=== PATIENT | female | born 1990 | race African-American/Black ===

== ENCOUNTER 2016-06-14 23:36 | Inpatient (IN) | payer MEDICAID ==
[~2016-06-14] VITALS: Ht 160 cm; Wt 116.1 kg
[2016-06-14] MEDS: LACTATED RINGER'S 1000 ML INJ 1,000 ML IV SCH (01:00)
[~2016-06-14 23:36] MED LIST: TOPI25 PO
[2016-06-15] VITALS (24 sets, daily range): BP systolic 102–137; BP diastolic 52–87; PULSE 80–116; RESP 18; TEMP 96.8–99.1; O2SAT 98–99
[2016-06-15] MEDS ORDERED: LACTATED RINGER'S 1000 ML INJ 1,000 ML IV PRN (00:50)
[2016-06-15] MEDS ORDERED: SODIUM CHLORID 0.9% 500 ML INJ 500 ML IV PRN (01:00)
[2016-06-15] MEDS ORDERED: PENICILLIN G POTASSIUM INJ 5,000,000 UNITS in SODIUM CHLORIDE 0.9% INJ 100 ML IV ONE (01:00)
[2016-06-15] MEDS ORDERED: LIDOCAINE HCL 1% 50 ML VIAL INFIL PRN (01:00)
[2016-06-15] MEDS ORDERED: MINERAL OIL 10 ML VIAL TOPICAL PRN (01:00)
[2016-06-15] MEDS ORDERED: LIDOCAINE HCL 1% 50 ML VIAL I-DERMAL PRN (01:00)
[2016-06-15] MEDS ORDERED: CITRIC ACID-SODIUM CITRATE LIQ 30 ML UDC PO SCH (01:00)
[2016-06-15] MEDS ORDERED: OXYTOCIN 30 UNITS-500ML PREMIX 500 ML IV ONE ×2 (01:00→18:00)
[2016-06-15] MEDS ORDERED: SODIUM CHLOR 0.9% 1000 ML INJ 1,000 ML IV PRN (01:10)
[2016-06-15 01:12] LABS: AUTOMATED NEUTROPHIL # 7.6 TH/MM3 (1.8-7.7); BASOPHIL % 0.4 % (0.0-2.0); EOSINOPHIL % 0.1 % (0.0-4.0); HEMATOCRIT 30.8 % (35.0-46.0); LYMPH % 22.6 % (9.0-44.0); LYMPHOCYTE # 2.4 TH/MM3 (1.0-4.8); MEAN CELL VOLUME 72.7 FL (80.0-100.0); MONO % 6.4 % (0.0-8.0); NEUT % 70.5 % (16.0-70.0); PLATELET COUNT 408 TH/MM3 (150-450); RED BLOOD COUNT 4.23 MIL/MM3 (4.00-5.30); RED CELL DISTRIBUTION WIDTH 16.9 % (11.6-17.2); WHITE BLOOD COUNT 10.8 TH/MM3 (4.0-11.0)
[2016-06-15 01:13] LABS: HEMO FLAGS AUTO DIFF
--- NOTE | 2016-06-15 01:21 | HHI.HP ---
HPI Chief Complaint Contraction pain and her water broke here in OB ED Date Seen: Jun 15, 2016 Travel History International Travel<30 Days: No Contact w/Intl Traveler<30Days: No Known Affected Area: No History of Present Illness HPI This patient is a 25-year-old black female PCS at 38 weeks gestation presents complaining of contractions. [facility] , and while here in OB ED the patient's membranes ruptured spontaneously. Clear fluid noted. Patient has previous . Desires a delivery if possible. Her operative note is available and she had transverse incision on the uterus. Patient denies bleeding at this time however she is real every 2-3 minutes painfully Para: 1 : 2 History Past Medical History Narrative Medical Obesity Obstetric History Obstetric History 1 done emergently for high blood pressure Past Surgical History Narrative Surgical 1 with a transverse incision documented Family History Family History: Negative Social History Alcohol Use: No Tobacco Use: No Substance Abuse: No Allergies-Medications (Allergen,Severity, Reaction): Coded Allergies: No Known Allergies (Unverified , 11/06/15) Home Meds Discontinued Scripts Topiramate (Topamax)25 Mg Tab25 Mg PO DAILY 14 Days Prov:Markie Cerrato MD 06/01/14 Review of Systems General / Constitutional: No: Fever, Weight Gain, Chills, Other Eyes: No: Diploplia, Blurred Vision, Visual changes, Pain, Photophobia HENT: No: Headaches, Vertigo, Lightheadedness Cardiovascular: No: Irregular Rhythm, Chest Pain or Discomfort, Palpitations, Tachycardia, Syncope, Varicosities, Edema, Cyanosis Respiratory: No: Cough, Short of Breath, Other Gastrointestinal: No: Nausea, Vomiting, Diarrhea Genitourinary: No: Decreased Urinary Output, Oliguria Musculoskeletal: No: Limited ROM, Weakness, Cramping, Edema, Pain Skin: No Rash, No Itching, No Dryness, No Lumps, No Change in Pigmentation, No Change in Nails, No Alopecia, No Lesions Neurologic: No: Weakness, Dizziness, Syncope, Focal Abnormalities, Coordination Problem, Headache, Slurred Speech, Seizures Psychiatric: No: Depression, Suicidal Ideations, Homicidal Ideation Endocrine: No: Heat Intolerance, Cold Intolerance, Polydipsia, Polyuria, Other Physical Exam Narrative GENERAL: Well-nourished, well-developed obese patient. SKIN: Warm and dry. HEAD: Normocephalic and atraumatic. EYES: No scleral icterus. No injection or drainage. ENT: No nasal drainage noted. Mucous membranes pink. Airway patent. NECK: Supple, trachea midline. No JVD. CARDIOVASCULAR: Regular rate and rhythm without murmurs, gallops, or rubs. RESPIRATORY: Breath sounds equal bilaterally. No accessory muscle use. BREASTS: Bilateral exam showed no masses , no retractions, no nipple discharge. ABDOMEN/GI: Abdomen soft, non-tender, bowel sounds present, no rebound, no guarding Gravid to [40-] weeks size Fundal Height: [-40] GENITOURINARY: External Genitalia: intact and normal in appearance BUS glands: [-] Cervix: [-] Dilatation: [1-] Effacement: [60-] Station: [-3] Presentation: [-vtx] Membranes: [ ruptured] Uterine Contractions: [reg-] FHT's: Category: [1-] Baseline: [133-] Reactive: [yes-] Variability: [mod-] Decels: [none-] EXTREMITIES: No cyanosis or edema. BACK: Nontender without obvious deformity. No CVA tenderness. NEUROLOGICAL: Awake and alert. Motor and sensory grossly within normal limits. Five out of 5 muscle strength in all muscle groups. Normal speech. Data Data Orders Ob (2e) Additional Admit Info (06/15/16 00:26) Admit To Inpatient (06/15/16 ) Vital Signs (Adult) .Per protocol (06/15/16 00:50) ^ Heart (06/15/16 00:50) ^ Amnioinfusion (06/15/16 00:50) Urinary Catheter Management .ONCE (06/15/16 00:50) Diet Liquid (06/15/16 Breakfast) Lactated Ringer's 1000 Ml Inj (Lr 1000 M (06/15/16 00:50) Lactated Ringer's 1000 Ml Inj (Lr 1000 M (06/15/16 00:50) Sodium Chlorid 0.9% 500 Ml Inj (Ns 500 M (06/15/16 01:00) Sodium Chlor 0.9% 1000 Ml Inj (Ns 1000 M (06/15/16 01:10) Lidocaine 1% Inj (50 Ml) (Xylocaine 1% I (06/15/16 01:00) Citric Acid-Sodium Citrate Liq (Bicitra (06/15/16 01:00) Fentanyl Inj (Fentanyl Inj) (06/15/16 01:00) Fentanyl Inj (Fentanyl Inj) (06/15/16 01:00) Penicillin G Potassium Inj (Pfizerpen-G (06/15/16 01:00) Complete Blood Count With Diff (06/15/16 00:50) Urinalysis - C+S If Indicated (06/15/16 00:50) Resp Oxygen Non Rebreathe Mask (06/15/16 ) ^ Epidural / Intrathecal Infus (06/15/16 00:50) Oxytocin 30 Units-500ml Premix (Pitocin (06/15/16 01:00) Lidocaine 1% Inj (50 Ml) (Xylocaine 1% I (06/15/16 01:00) Light Mineral Oil (Muri-Lube Oil) (06/15/16 01:00) Inpatient Certification (06/15/16 ) Specimen To Be Collected PRN (06/15/16 00:50) Type And Screen (06/15/16 00:53) Labs GBS positive Assessment/Plan Assessment and Plan This patient is a 25-year-old black female previous low transverse and now 38 weeks with contractions and spontaneous rupture membranes. baby is reactive heart rate tracing She desires a if possible as discussed with the patient like she understands that the is a safe procedure but has a uterine rupture rate of just under 1%. She understands that and accepts that risk consent form signed for . Patient' s cervix is 1 cm and 60% effaced with clear amniotic fluid noted. Patient is GBS is positive records from her previous are available., She is real and entering the latent phase labor. Confirm the baby's presentation with ultrasound prior to continuing, patient was counseled and wishes to proceed with trial labor Mina Mcfadden II, MD Jun 15, 2016 01:21
[2016-06-15 01:22] LABS: BACTERIA, URINE MOD /hpf; BLOOD, URINE MOD (NEG); COMMENT (UR) CULTURE INDICATED; CULTURE IF INDICATED CULTURE INDICATED; GLUCOSE,URINE NEG (NEG); KETONE, URINE 10 mg/dL (NEG); NITRITE,URINE NEG (NEG); PH, URINE 6.5 (5.0-8.5); SQUAMOUS EPITHELIAL CELL URINE 25 /hpf (0-5); URINE COLOR YELLOW (YELLW/STRAW)
[2016-06-15 01:38] LABS: EOSINOPHILS 1 % (0-4); MYELOCYTES 1 % (0-0); NEUTROPHIL # MANUAL DIFF 8.5 TH/MM3 (1.8-7.7); POLYS (SEG NEUTROPHILS) 78 % (16-70); WBC DIFF SAMPLE 100
[2016-06-15 01:39] LABS: PLATELET ESTIMATE SMEAR NORMAL (NORMAL); PLATELET MORPHOLOGY NORMAL (NORMAL); SCAN/DIFF FINAL DIFF MANUAL
[2016-06-15 01:40] LABS: TOXIC VACUOLATION PRESENT (NONE SEEN)
--- NOTE | 2016-06-15 01:49 | HHI.HP ---
History & Physical H&P HPI Chief Complaint Contractions Date Seen: Jun 15, 2016 Time Seen: 00:15 Travel History International Travel<30 Days: No Contact w/Intl Traveler<30Days: No Known Affected Area: No History of Present Illness HPI Ms. Puente is a 25 yo at 38 5/7 weeks (ROSALIE 06/24/2016) who presents with complaint of contractions. Patient reports the contractions have increased in severity over the past 12 days. Patient was contractions are approximately 2 5 minutes apart. Patient denies any loss of vaginal fluid. Patient reports feeling less movement since onset of contractions. Patient is GBS positive. Patient denies complications this . Patient reports prior preeclampsia with first gestation 8 years prior requiring emergency ; patient is had normal blood pressure this gestation. No reported shortness of breath, chest pain, nausea/vomiting, dysuria, or bowel abnormalities. Patient requests vaginal after ; patient was counseled regarding potential risk of uterine rupture, but still requests this be done. Para: 1 : 2 Remarks Patient reported loss of vaginal fluid shortly after interview History (Limited) History Past Medical History Narrative Medical Prior preeclampsia Medical History: Denies Significant Hx Obstetric History Obstetric History 001 Prior preeclampsia; first delivery at 38 weeks [place] Past Surgical History Narrative Surgical CS for first gestation in 2008; transverse low uterine incision documented on records obtained from prior hospitalization Family History Family History: Negative Social History Narrative Social History Patient quit smoking during Alcohol Use: No Tobacco Use: No Substance Abuse: No Allergies-Medications Allergies-Medications (Allergen,Severity, Reaction): Coded Allergies: No Known Allergies (Unverified , 11/06/15) Home Meds Discontinued Scripts Topiramate (Topamax)25 Mg Tab25 Mg PO DAILY 14 Days Prov:Markie Cerrato MD 06/01/14 ROS Review of Systems General / Constitutional: No: Fever, Chills Eyes: No: Diploplia, Blurred Vision HENT: No: Headaches Cardiovascular: No: Chest Pain or Discomfort Respiratory: No: Short of Breath Gastrointestinal: No: Nausea, Vomiting Musculoskeletal: Pain Physical Exam Physical Exam Narrative GENERAL: Well-nourished, well-developed patient. SKIN: Warm and dry. HEAD: Normocephalic and atraumatic. EYES: No scleral icterus. No injection or drainage. ENT: No nasal drainage noted. Mucous membranes pink. Airway patent. NECK: Supple, trachea midline. No JVD. CARDIOVASCULAR: Regular rate and rhythm without murmurs RESPIRATORY: Breath sounds equal bilaterally. No accessory muscle use. ABDOMEN/GI: Abdomen soft, non-tender, bowel sounds present, no rebound, no guarding Gravid EXTREMITIES: No cyanosis or edema. BACK: Nontender without obvious deformity. No CVA tenderness. NEUROLOGICAL: Awake and alert. Motor and sensory function grossly within normal limits. GENITOURINARY: External Genitalia: intact and normal in appearance Abundant clear vaginal fluid present suggestive of ruptured membranes Cervix: Dilatation:1 Effacement: 20% Station: -3 Membranes: Rupture Uterine Contractions: q34 minutes FHT's: Category: 1 Baseline: 145 Reactive: Y Variability: Moderate Decels: Variable Data Data Data Vital Signs Reviewed: Yes Orders Ob (2e) Additional Admit Info (06/15/16 00:26) Admit To Inpatient (06/15/16 ) Vital Signs (Adult) .Per protocol (06/15/16 00:50) ^ Heart (06/15/16 00:50) ^ Amnioinfusion (06/15/16 00:50) Urinary Catheter Management .ONCE (06/15/16 00:50) Diet Liquid (06/15/16 Breakfast) Lactated Ringer's 1000 Ml Inj (Lr 1000 M (06/15/16 00:50) Lactated Ringer's 1000 Ml Inj (Lr 1000 M (06/15/16 00:50) Sodium Chlorid 0.9% 500 Ml Inj (Ns 500 M (06/15/16 01:00) Sodium Chlor 0.9% 1000 Ml Inj (Ns 1000 M (06/15/16 01:10) Lidocaine 1% Inj (50 Ml) (Xylocaine 1% I (06/15/16 01:00) Citric Acid-Sodium Citrate Liq (Bicitra (06/15/16 01:00) Fentanyl Inj (Fentanyl Inj) (06/15/16 01:00) Fentanyl Inj (Fentanyl Inj) (06/15/16 01:00) Penicillin G Potassium Inj (Pfizerpen-G (06/15/16 01:00) Complete Blood Count With Diff (06/15/16 00:50) Urinalysis - C+S If Indicated (06/15/16 00:50) Resp Oxygen Non Rebreathe Mask (06/15/16 ) ^ Epidural / Intrathecal Infus (06/15/16 00:50) Oxytocin 30 Units-500ml Premix (Pitocin (06/15/16 01:00) Lidocaine 1% Inj (50 Ml) (Xylocaine 1% I (06/15/16 01:00) Light Mineral Oil (Muri-Lube Oil) (06/15/16 01:00) Inpatient Certification (06/15/16 ) Specimen To Be Collected PRN (06/15/16 00:50) Type And Screen (06/15/16 00:53) Urine Culture (06/15/16 00:30) Labs Laboratory Tests Test 06/15/16 06/15/16 00:30 00:55 Urine Color YELLOW Urine Turbidity CLOUDY Urine pH 6.5 Urine Specific [place] 1.018 Urine Protein 100 Urine Glucose (UA) NEG Urine Ketones 10 Urine Occult Blood MOD Urine Nitrite NEG Urine Bilirubin NEG Urine Urobilinogen LESS THAN 2.0 Urine Leukocyte Esterase LARGE Urine RBC 72 Urine WBC Urine WBC Clumps MANY Urine Squamous Epithelial 25 Cells Urine Bacteria MOD Urine Yeast with Hyphae RARE Urine Yeast (Budding) Microscopic Urinalysis Comment CULTURE INDICATED White Blood Count 10.8 Red Blood Count 4.23 Hemoglobin 10.2 Hematocrit 30.8 Mean Corpuscular Volume 72.7 Mean Corpuscular Hemoglobin 24.0 Mean Corpuscular Hemoglobin 33.0 Concent Red Cell Distribution Width 16.9 Platelet Count 408 Mean Platelet Volume 7.6 Neutrophils (%) (Auto) 70.5 Lymphocytes (%) (Auto) 22.6 Monocytes (%) (Auto) 6.4 Eosinophils (%) (Auto) 0.1 Basophils (%) (Auto) 0.4 Neutrophils # (Auto) 7.6 Lymphocytes # (Auto) 2.4 Monocytes # (Auto) 0.7 Eosinophils # (Auto) 0.0 Basophils # (Auto) 0.0 CBC Comment AUTO DIFF Date/Time Procedure Status Source Growth 06/15/16 00:30 Urine Culture Received Urine Clean Catch Pending MDM MDM Medical Record Reviewed: Yes Narrative Course / MDM Ms. Puente is a 25 yo at 38 5/7 weeks (ROSALIE 06/24/2016) Assessment: -Contractions on EFM q3-4min -Rupture of membranes documented during triage -Category 1 rhythm -Prior CS; patient requests -GBS positive -Cervix 1/60%/-3 Plan: -Will admit for trial of labor as -Will continue EFM -Type and screen, blood typing, UA ordered -Will start IV fluids -Epidural if requested for pain control Paulie Anthony MD R2 Jun 15, 2016 01:49
[2016-06-15] MEDS: PENICILLIN G POTASSIUM INJ 2,500,000 UNITS in SODIUM CHLORIDE 0.9% INJ 100 ML IV SCH ×4 (07:10→18:00)
--- NOTE | 2016-06-15 07:12 | PD.LABORPN ---
Subjective Subjective 25 yo at 38 5/7 weeks (ROSALIE 06/24/2016) who presented with contractions. She is GBS positive. No complications this . She had preeclampsia with prior 8 years ago and required emergency . She's had normal blood pressures this . She is hoping for a vaginal delivery after . Currently doing well, resting in bed. She feels contractions every 3 to 5 mins, but they are weaker than last night. She quit smoking during . She had SROM during triage, is GBS positive, and is receiving penicillin for prophylaxis (1 AM and 7 AM). IUPC placed, considering pitocin for augmentation. Objective Objective Pelvic Exam: Dilatation: 1 Effacement: 50% Station: -3 Presentation: vertex Membranes: SROM Uterine Contractions: q5-6 mins FHT's: Category: 1 Baseline: 140's Reactive: yes Variability: moderate Decels: none Assessment/Plan Assessment and Plan 25 yo at 38 5/7 weeks (ROSALIE 06/24/2016) attempting . -Monitor contractions with IUPC -Consider Pitocin for augmentation - GBS positive, SROM at triage, getting penicillin for prophylaxis - Monitor heart strip - Pain well controlled currently Ian Andre MD R2 Jun 15, 2016 07:12 -Will start IV fluids -Epidural if requested for pain control Ian Andre MD R2 Jun 15, 2016 07:12 Ian Andre MD R2 Jun 15, 2016 07:12
[2016-06-15] MEDS ORDERED: OXYTOCIN 30 UNITS-500ML PREMIX 500 ML IV SCH (10:00)
--- NOTE | 2016-06-15 10:19 | PD.LABORPN ---
Subjective Subjective Coming on service taking over for Dr. Mcfadden. Patient is 25-year-old female who is at 3839 weeks gestation previous section and desires vaginal after section. Patient was admitted with spontaneous rupture of membranes and augmentation with Pitocin was begun at 9:30 this morning. Patient does have an intrauterine pressure catheter placed and she does not desire any additional pain management. Patient's positive GBS which is being treated at this time and she has a history of MRSA with contact precautions with this . Last cervical exam was 1 cm at 7:30 this morning. Previous was done due to cephalopelvic disproportion and nonreassuring heart rate tracing. Patient has not had a third trimester ultrasound with estimated weight. heart rate tracing is a category 1. With the baseline of 140 moderate variability no decelerations are noted. Contractions presently have a [place] units of 120. Objective Vital Signs Vital Signs Date Time Temp Pulse Resp B/P Pulse Ox O2 Delivery O2 Flow Rate FiO2 06/15/16 08:55 91 118/52 06/15/16 08:54 99.1 18 06/15/16 07:13 95 113/77 Objective Pelvic Exam: Cervix: [-] Dilatation: [-] Effacement: [-] Station: [-] Presentation: [-] Membranes: [intact or ruptured] Uterine Contractions: [-] FHT's: Category: [-] Baseline: [-] Reactive: [-] Variability: [-] Decels: [-] Marybeth Amin MD Jun 15, 2016 10:19
--- NOTE | 2016-06-15 14:54 | PD.LABORPN ---
Subjective Subjective 25 yo at 38 5/7 weeks (ROSALIE 06/24/2016) who presented with contractions. She is GBS positive, on penicillin. She is undergoing trial of labor after C- section. Pitocin is currently at 6 units per minute, patient real every 2 -3 minutes over last 20 minutes. Prior to recent increase of Pitocin, patient was real every 4-5 minutes. One variable decelerations noted since increase of Pitocin. Patient states she feels contractions but they are "tolerable". She is currently on right lateral decubitus position. SROM at approximately midnight. No other symptoms. Cervical exam from 20 min ago unchanged from last exam, 2-3/80%/-3. (Sena Davis MD R1) Objective Vital Signs Vital Signs Date Time Temp Pulse Resp B/P Pulse Ox O2 Delivery O2 Flow Rate FiO2 06/15/16 14:20 80 18 112/62 06/15/16 13:36 18 06/15/16 13:35 99 102/53 06/15/16 13:35 97.9 06/15/16 12:29 92 18 105/59 06/15/16 11:41 96 102/67 06/15/16 11:41 98.4 06/15/16 11:39 18 06/15/16 10:53 116 112/87 06/15/16 10:52 18 06/15/16 08:55 91 118/52 06/15/16 08:54 99.1 18 06/15/16 07:13 95 113/77 Objective Pelvic Exam: Cervix: Soft Dilatation: 2-3 Effacement: 70 Station: -3 Presentation: vertex Membranes: SROM at 0020 Uterine Contractions: Every 2-3 minutes FHT's: Category: 1 Baseline: 140 Reactive: y Variability: mod Decels: one variable (Sena Davis MD R1) Assessment/Plan Problem List: (1) Encounter for trial of labor Assessment and Plan Possible Pitocin for 30 minutes Restart Pitocin at half previous rate .(3mU/min) Continue repositioning as needed No cervical change since 11 AM, currently 2370/-3 If patient does not progress at next cervical exam, will proceed with section SDW Dr. Andre, DW Dr. Amin (Sena Davis MD R1) Collaborating MD Comments Agree with present management (Marybeth Amin MD) Sena Davis MD R1 Jun 15, 2016 14:54 Marybeth Amin MD Jun 15, 2016 16:04
[2016-06-15] MEDS: LACTATED RINGER'S 1000 ML INJ 1,000 ML IV SCH (15:31)
--- NOTE | 2016-06-15 16:25 | PD.LABORPN ---
Subjective Subjective Patient at term with previous for . SROM this am with pitocin augmentation due to hypotonic labor pattern. Unable to increase pitocin due to intolerance of labor. Baseline 140, category 1 tracing with moderate variability. Variable decelerations to 90 on 50% of contractions while on pitocin. IUPC/FSE are in with 180 mvu without pitocin Objective Vital Signs Vital Signs Date Time Temp Pulse Resp B/P Pulse Ox O2 Delivery O2 Flow Rate FiO2 06/15/16 15:18 98.3 06/15/16 15:18 18 06/15/16 15:15 98 109/60 06/15/16 14:20 80 18 112/62 06/15/16 14:15 18 06/15/16 13:36 18 06/15/16 13:35 99 102/53 06/15/16 13:35 97.9 06/15/16 12:29 92 18 105/59 06/15/16 11:41 96 102/67 06/15/16 11:41 98.4 06/15/16 11:39 18 06/15/16 10:53 116 112/87 06/15/16 10:52 18 06/15/16 08:55 91 118/52 06/15/16 08:54 99.1 18 Cx 2-3/50/-3 Objective Pelvic Exam: Cervix: [-mid] Dilatation: [2-3-] Effacement: [-50] Station: [-3-] Presentation: [-] Membranes: [intact or ruptured] Uterine Contractions: [-] FHT's: Category: [-1] Baseline: [140-] Reactive: [moderate-] Variability: [moderate-] Decels: [absent-] Assessment/Plan Problem List: (1) Encounter for trial of labor Assessment and Plan Plan repeat Inadequate progress with intolerance to labor Marybeth Amin MD Jun 15, 2016 16:25
[2016-06-15] MEDS ORDERED: ceFAZolin INJ 1,000 MG VIAL ONE ×2 (16:29)
[2016-06-15] MEDS ORDERED: ceFAZolin 2 GM PREMIX 50 ML IV SCH (16:30)
[2016-06-15] MEDS ORDERED: OXYTOCIN 10 UNIT/ML AMP ONE (16:31)
[2016-06-15] MEDS ORDERED: ACETAMINOPHEN 1000 MG/100 ML VIAL IV ONE (16:32)
[2016-06-15] MEDS ORDERED: fentaNYL CITRATE 250 MCG/5 ML AMP ONE (17:48)
[2016-06-15] MEDS ORDERED: MORPHINE SULFATE PF 5 MG/10 ML VIAL ONE (17:48)
--- NOTE | 2016-06-15 17:57 | PD.OB.DELI ---
Procedure Note Section Procedure Pre Op Diagnosis #1. 38-39 weeks gestation #2. intolerance to labor #3. Failure to progress Post Op Diagnosis: Post Op Diagnosis Same Performed by Marybeth Amni Procedure: Repeat Low Transverse Sec Indication for delivery: Nonreassuring heart tracing Informed consent obtained: For anesthesia, For procedure Confirmed correct: Patient, Procedure, Time-out taken Anesthesia: Spinal Medication prior to procedure: As documented in eMAR Monitoring during procedure: Blood pressure monitoring, Pulse oximetry Urinary catheter: Inserted using sterile technique Sterile preparation: Duraprep Position: Supine with wedge to left side Operative Features Skin Incision: Pfannenstiel Uterine Incision: Low transverse w/knife / blunt ext Membranes Ruptured: Previously Presentation: Occiput posterior Time of : 17:15 Delivery of infant: Umbilical cord, Other (nuchal cord 1) Infant: Female One Minute : 9 Five Minute : 9 Weight: 3050 g Placenta delivered: Intact Estimated blood loss: 500 cc Procedure tolerated: Well Maternal Condition: Stable Condition: Stable Marybeth Amin MD Jun 15, 2016 17:57
[2016-06-15] MEDS ORDERED: SIMETHICONE 80 MG CHEWABLE TAB PO PRN (18:00)
[2016-06-15] MEDS ORDERED: ONDANSETRON HCL 4 MG/2 ML VIAL IV PUSH PRN (18:00)
[2016-06-15] MEDS ORDERED: SODIUM CHLORIDE 0.9% FLUSH 5 ML FLUSH IV PRN (18:00)
[2016-06-15] MEDS ORDERED: EPIDURAL-NO SYSTEMIC NARCOTICS XX PRN ×2 (20:15)
[2016-06-15] MEDS ORDERED: EPIDURAL-DIPHENHYDRAMINE HCL 50 MG/ML VIAL IV PUSH PRN ×2 (20:15)
[2016-06-15] MEDS ORDERED: EPIDURAL-DIPHENHYDRAMINE HCL 50 MG CAP PO PRN ×2 (20:15)
[2016-06-15] MEDS ORDERED: EPIDURAL-NALOXONE HCL 0.4 MG/ML AMP IV PRN ×2 (20:15)
[2016-06-15] MEDS ORDERED: EPIDURAL-DO NOT ADMINISTER ANTICOAGULANTS XX PRN ×2 (20:15)
[2016-06-15] MEDS ORDERED: SODIUM CHLORIDE 0.9% FLUSH 5 ML FLUSH IV SCH (21:00)
[2016-06-15] MEDS ORDERED: HYDROmorphone HCL PF 1 MG/ML VIAL IV PRN (22:15)
[2016-06-15] MEDS ORDERED: LACTATED RINGER'S 1000 ML INJ 1,000 ML IV SCH (22:51)
[2016-06-16] MEDS: LACTATED RINGER'S 1000 ML INJ 1,000 ML IV SCH (01:46)
[2016-06-16] MEDS ORDERED: OXYTOCIN 30 UNITS-500ML PREMIX 500 ML IV PRN (04:00)
[2016-06-16 05:00] VITALS: BP 95/57; PULSE 97; RESP 18; TEMP 98.9
[2016-06-16] MEDS: oxyCODONE/ACETAMINOPHEN 5 MG/325 MG TAB PO PRN ×4 (05:58→22:52)
[2016-06-16 06:12] LABS: BASOPHIL % 0.2 % (0.0-2.0); HEMATOCRIT 29.8 % (35.0-46.0); LYMPH % 12.1 % (9.0-44.0); LYMPHOCYTE # 1.5 TH/MM3 (1.0-4.8); MEAN CELL VOLUME 73.9 FL (80.0-100.0); MEAN CORPUSCULAR HGB CONC 31.1 % (32.0-36.0); MONO % 5.3 % (0.0-8.0); NEUT % 82.4 % (16.0-70.0); PLATELET COUNT 337 TH/MM3 (150-450); RED BLOOD COUNT 4.03 MIL/MM3 (4.00-5.30); WHITE BLOOD COUNT 12.2 TH/MM3 (4.0-11.0)
[2016-06-16 06:16] LABS: HEMO FLAGS AUTO DIFF
[2016-06-16] MEDS: IBUPROFEN 600 MG TAB PO PRN ×2 (07:26→14:07)
--- NOTE | 2016-06-16 07:37 | HHI.OB ---
Subjective Remarks 25 year old POD 1 after for failure to progress after trial of labor. This morning she is doing well. She has a good appetite. Pain is well controlled. Lochia is amount of menstrual period. She has no bowel movement or flatus at this time. She plans to use condoms for control. Counseled on importance of consistent use. She is starting to ambulate. (Ian Andre MD R2) Objective Vitals/I&O Vital Signs Date Time Temp Pulse Resp B/P Pulse Ox O2 Delivery O2 Flow Rate FiO2 06/16/16 05:00 97 95/57 06/16/16 05:00 98.9 18 06/15/16 23:27 98.7 91 18 110/73 06/15/16 20:21 90 18 113/68 06/15/16 20:20 96.8 06/15/16 19:13 98 06/15/16 19:13 18 06/15/16 19:12 81 129/70 06/15/16 19:04 97.9 06/15/16 18:49 88 18 127/78 98 06/15/16 18:35 91 128/70 06/15/16 18:35 18 99 06/15/16 18:19 95 18 124/70 99 06/15/16 18:05 99 18 137/80 99 06/15/16 17:52 98.2 102 18 116/76 99 06/15/16 15:18 98.3 06/15/16 15:18 18 06/15/16 15:15 98 109/60 06/15/16 14:20 80 18 112/62 06/15/16 14:15 18 06/15/16 13:36 18 06/15/16 13:35 99 102/53 06/15/16 13:35 97.9 06/15/16 12:29 92 18 105/59 06/15/16 11:41 96 102/67 06/15/16 11:41 98.4 06/15/16 11:39 18 06/15/16 10:53 116 112/87 06/15/16 10:52 18 06/15/16 08:55 91 118/52 06/15/16 08:54 99.1 18 (Ian Andre MD R2) Result Diagram: 06/16/16 0521 Objective Remarks GENERAL: Well-nourished, well-developed patient. CARDIOVASCULAR: Regular rate and rhythm without murmurs, gallops, or rubs. RESPIRATORY: Breath sounds equal bilaterally. No accessory muscle use. ABDOMEN/GI: Abdomen soft, non-tender, bowel sounds present. Incision: Clean, dry and intact. Fundus: Firm, non-tender at umbilicus. GENITOURINARY: Light to moderate bleeding. EXTREMITIES: No cyanosis or edema, non-tender, without signs of DVT. Medications and IVs Current Medications Medications (Trade) Dose Ordered Sig/Isaiah Route Start Time Stop Time Status Last Admin Lactated Ringer's 1,000 ml @ 125 mls/hr Q8H IV 06/15/16 00:50 06/16/16 01:46 Lactated Ringer's 1,000 ml @ 3,000 mls/hr Q20M PRN IV 06/15/16 00:50 Sodium Chloride 500 ml @ 1,000 mls/hr ONCE PRN IV 06/15/16 01:00 06/22/16 00:59 (NS 1000 ml Inj) 1,000 ml @ 100 mls/hr Q10H PRN IV 06/15/16 01:10 (fentaNYL INJ) 50 mcg Q1H PRN IV PUSH 06/15/16 01:00 (fentaNYL INJ) 100 mcg Q1H PRN IV PUSH 06/15/16 01:00 06/15/16 13:28 Mineral Oil 10 ml 10 ml UNSCH PRN TOPICAL 06/15/16 01:00 Penicillin G Potassium 3430236 units/Sodium Chloride 100 ml @ 200 mls/hr Q4H IV 06/15/16 06:00 06/15/16 15:57 Oxytocin 500 ml @ 0 mls/hr TITRATE IV 06/15/16 10:00 06/15/16 09:26 (Lr 1000 ml Inj) 1,000 ml @ 100 mls/hr Q10H IV 06/15/16 22:51 06/16/16 18:50 (NS Flush) 2 ml BID IV 06/15/16 21:00 (NS Flush) 2 ml UNSCH PRN IV 06/15/16 18:00 (Mylicon Chew) 80 mg QID PRN PO 06/15/16 18:00 (Motrin) 600 mg Q6H PRN PO 06/15/16 18:00 06/16/16 07:26 (Percocet 5-325 Mg) 1 tab Q4H PRN PO 06/15/16 18:00 06/16/16 05:58 (Percocet 5-325 Mg) 2 tab Q4H PRN PO 06/15/16 18:00 (M-M-R Ii Inj) 0.5 ml ONCE ONCE SQ 06/16/16 16:00 06/16/16 16:01 (Boostrix Inj) 0.5 ml ONCE ONCE IM 06/16/16 16:00 06/16/16 16:01 (Zofran Inj) 4 mg Q6H PRN IV PUSH 06/15/16 18:00 Miscellaneous Information NO SYSTEMIC NARCOTICS TO BE GIVEN FO... UNSCH PRN XX 06/15/16 20:15 06/16/16 20:14 (Narcan Inj) 0.4 mg UNSCH PRN IV 06/15/16 20:15 06/16/16 20:14 (Benadryl Inj) 25 mg Q6H PRN IV PUSH 06/15/16 20:15 06/16/16 20:14 (Benadryl) 50 mg Q6H PRN PO 06/15/16 20:15 06/16/16 20:14 Miscellaneous Information ALL NURSING DEPARTMENTS UNSCH PRN XX 06/15/16 20:15 06/16/16 20:14 Miscellaneous Information NO SYSTEMIC NARCOTICS TO BE GIVEN FO... UNSCH PRN XX 06/15/16 20:15 06/16/16 20:14 (Narcan Inj) 0.4 mg UNSCH PRN IV 06/15/16 20:15 06/16/16 20:14 (Benadryl Inj) 25 mg Q6H PRN IV PUSH 06/15/16 20:15 06/16/16 20:14 (Benadryl) 50 mg Q6H PRN PO 06/15/16 20:15 06/16/16 20:14 Miscellaneous Information ALL NURSING DEPARTMENTS UNSCH PRN XX 06/15/16 20:15 06/16/16 20:14 (Dilaudid Pf Inj) 1 mg Q3H PRN IV 06/15/16 22:15 (Ian Andre MD R2) Assessment/Plan Assessment and Plan 25 year old POD 1 after failure to progress. - Pain control with percocet, ibuprofen PRN - Encourage ambulation - Encourage exclusive - Counseling on control options - Monitor lochia - Advance diet to regular - Likely discharge in the next one to two days Discussed with Dr. Amin (Ian Andre MD R2) Attestation POD #1, pt seen. Agree with management. (Marybeth Amin MD) Ian Andre MD R2 Jun 16, 2016 07:37 Marybeth Amin MD Jun 16, 2016 08:19
[2016-06-16 08:00] VITALS: BP 104/55; PULSE 91; RESP 18
[2016-06-16 12:19] LABS: SCAN/DIFF AUTO DIFF CONFIRMED
[2016-06-16 13:00] VITALS: BP 99/60; PULSE 94; RESP 18; TEMP 97.9
[2016-06-16] MEDS ORDERED: MEASLES, MUMPS, RUBELLA VACCINE 0.5 ML VIAL SQ ONE (16:00)
[2016-06-16] MEDS ORDERED: DIPHTH/TETANUS/ACEL PERTUSSIS (BOOSTER) 0.5 ML VIAL/PFS IM ONE (16:00)
[2016-06-16 17:00] VITALS: BP 97/60; PULSE 94; RESP 16; TEMP 98.4
--- NOTE | 2016-06-16 19:31 | MP ---
cc: TOMI SINGH M.D. DATE OF SURGERY 06/15/16 PREOPERATIVE DIAGNOSIS 1. 38-29 weeks gestation. 2. Previous section 3. Failed vaginal after section. 4. intolerance to labor. POSTOPERATIVE DIAGNOSIS 1. 38-29 weeks gestation. 2. Previous section 3. Failed vaginal after section. 4. intolerance to labor. PROCEDURE Repeat low transverse section without extension ESTIMATED BLOOD LOSS Approximately 500 mL ANESTHESIA Spinal COUNTS correct x3 MEDICATIONS Ancef 2 grams given preoperatively. COMPLICATIONS DRAINS Hill to gravity. FINDINGS 1. Normal uterus, tubes and ovaries. 2. Clear amniotic fluid, previously rupture 3. female vertex presentation. Apgars were 9 and 9. Weight was 3050 grams. Hemostasis after the case. DESCRIPTION OF PROCEDURE The patient was taken back to operating room, prepped and draped usual sterile fashion, placed in the dorsosupine position with a wedge to the left side. A Pfannenstiel incision was made from her previous scar and taken down to the fascia. The fascia was nicked in the midline, extended bilaterally and taken off the rectus muscles. Rectus muscles were divided in the midline. Omental adhesions were noted here to the anterior perineum. These were taken down with the Bovie. Vesicouterine perineum was taken down as it had scarred high on the uterus. Transverse hysterotomy incision was made, blunted extended bilaterally and the infant was delivered onto the operative field. Mouth and nares were bulb suctioned. A nuchal cord x1 was reduced. The rest of the body was delivered and handed off to resuscitation team for subsequent care. A delayed cord clamping was done for 40 seconds. Placenta was delivered intact spontaneously and the endometrial cavity was curetted with a moist laparotomy sponge. Hysterotomy incision was closed with a running locking suture of #1 chromic. The fascia was closed with a #1 PDS. Subcutaneous tissue was made hemostatic with a Bovie and the skin was closed with a 4-0 Monocryl in a subcuticular fashion. The patient tolerated the procedure well. She was taken back to recovery room in good condition. MD MARILOU Jacobo/ /6:01 PM /7:07 PM
[2016-06-17] MEDS: oxyCODONE/ACETAMINOPHEN 5 MG/325 MG TAB PO PRN ×3 (03:15→09:33)
[2016-06-17] MEDS: IBUPROFEN 600 MG TAB PO PRN (03:15)
--- NOTE | 2016-06-17 10:49 | HHI.OB ---
Subjective Post Operative Day: 3 Remarks 25 year old POD 2 after repeat ( attempted but failure to progress). Mrs. Puente reports that she is doing well at this time; she reports that she still has pain but that it is controlled. Mild lochia. No dysuria. Patient passing gas without bowel movement. Patient denies shortness of breath or leg swelling. Patient reports that she is feeding via breast/bottle. Patient is ambulating well. (Paulie Anthony MD R2) Remarks Patient seen and evaluated with resident under direct supervision, agree with assessment and plan. (Srinivas Mclain MD) Objective Vitals/I&O Vital Signs Date Time Temp Pulse Resp B/P Pulse Ox O2 Delivery O2 Flow Rate FiO2 06/16/16 17:00 94 16 97/60 06/16/16 17:00 98.4 06/16/16 13:00 97.9 94 18 99/60 (Paulie Anthony MD R2) Result Diagram: 06/16/16 0521 Objective Remarks GENERAL: Well-nourished, well-developed patient. CARDIOVASCULAR: Regular rate and rhythm without murmurs, gallops, or rubs. RESPIRATORY: Breath sounds equal bilaterally. No accessory muscle use. ABDOMEN/GI: Abdomen soft, non-tender, bowel sounds present. Incision: Clean, dry and intact. Fundus: Firm, non-tender at umbilicus. GENITOURINARY: Light bleeding. EXTREMITIES: No cyanosis or edema, non-tender, without signs of DVT. Medications and IVs Current Medications Medications (Trade) Dose Ordered Sig/Isaiah Route Start Time Stop Time Status Last Admin Lactated Ringer's 1,000 ml @ 125 mls/hr Q8H IV 06/15/16 00:50 06/16/16 01:46 Lactated Ringer's 1,000 ml @ 3,000 mls/hr Q20M PRN IV 06/15/16 00:50 Sodium Chloride 500 ml @ 1,000 mls/hr ONCE PRN IV 06/15/16 01:00 06/22/16 00:59 (NS 1000 ml Inj) 1,000 ml @ 100 mls/hr Q10H PRN IV 06/15/16 01:10 (fentaNYL INJ) 50 mcg Q1H PRN IV PUSH 06/15/16 01:00 (fentaNYL INJ) 100 mcg Q1H PRN IV PUSH 06/15/16 01:00 06/15/16 13:28 Mineral Oil 10 ml 10 ml UNSCH PRN TOPICAL 06/15/16 01:00 Penicillin G Potassium 3390249 units/Sodium Chloride 100 ml @ 200 mls/hr Q4H IV 06/15/16 06:00 06/15/16 15:57 (Pitocin 30 Units-NS 500 ml Premix) 500 ml @ 0 mls/hr TITRATE IV 06/15/16 10:00 06/15/16 09:26 (NS Flush) 2 ml BID IV 06/15/16 21:00 (NS Flush) 2 ml UNSCH PRN IV 06/15/16 18:00 (Mylicon Chew) 80 mg QID PRN PO 06/15/16 18:00 (Motrin) 600 mg Q6H PRN PO 06/15/16 18:00 06/17/16 03:15 (Percocet 5-325 Mg) 1 tab Q4H PRN PO 06/15/16 18:00 06/17/16 09:33 (Percocet 5-325 Mg) 2 tab Q4H PRN PO 06/15/16 18:00 06/16/16 22:52 (Zofran Inj) 4 mg Q6H PRN IV PUSH 06/15/16 18:00 (Dilaudid Pf Inj) 1 mg Q3H PRN IV 06/15/16 22:15 (Paulie Anthony MD R2) Assessment/Plan Problem List: (1) care following delivery Assessment and Plan 25 year old POD 2 repeat after failure to progress. - Pain control with Percocet, Ibuprofen PRN - Encourage - Counseling on control options - Monitor lochia - Likely discharge in the next one to two days Discussed with Dr. Mclain (Paulie Anthony MD R2) Paulie Anthony MD R2 Jun 17, 2016 10:49 Srinivas Mclain MD Jun 23, 2016 12:01
[2016-06-17] MEDS ORDERED: PREN1TAB30 PO (11:38)
[2016-06-17] MEDS ORDERED: FERR325T PO (11:38)
[2016-06-17] MEDS ORDERED: OXYC1TAB63 PO (11:38)
[2016-06-17] MEDS ORDERED: IBUP-232 PO (11:38)
--- NOTE | 2016-06-17 11:58 | HHI.DCPOC ---
Discharge Care Plan Diagnosis: (1) care following delivery Goals to Promote Your Health * To prevent worsening of your condition and complications * To maintain your health at the optimal level Directions to Meet Your Goals Take your medications as prescribed Follow your dietary instruction Follow activity as directed Keep your appointments as scheduled Take your immunizations and boosters as scheduled If your symptoms worsen call your PCP, if no PCP go to Urgent Care Center or Emergency Room Smoking is Dangerous to Your Health. Avoid second hand smoke Call the 24-hour hour crisis hotline for domestic abuse at Paulie Anthony MD R2 Jun 17, 2016 11:58
== END 2016-06-17 13:40 | disposition home or self-care (01) | DRG 766 ==
LOC: HOBED 23:36 → H2EB 06-15 00:27 → H1EA 06-15 19:45
PROVIDERS: ADMIT Obstetrics & Gynecology Maternal & Fetal Medicine; ATTEND Obstetrics & Gynecology Maternal & Fetal Medicine
PROC: 10D00Z1 Extraction of Products of Conception, Low, Open Approach (ICD-10-PCS; principal; 2016-06-15)
DX: O34.211 Maternal care for low transverse scar from previous cesarean delivery (principal); O99.824 Streptococcus B carrier state complicating childbirth; Z87.891 Personal history of nicotine dependence; O62.2 Other uterine inertia; O76 Abnormality in fetal heart rate and rhythm complicating labor and delivery; O69.81X0 Labor and delivery complicated by cord around neck, without compression, not applicable or unspecified; O66.41 Failed attempted vaginal birth after previous cesarean delivery; Z3A.38 38 weeks gestation of pregnancy; Z37.0 Single live birth
CPT/HCPCS: 81001; 84112; 85007; 85025; 85027; 86850; 86900; 86901; 87086; 87641; 99284; J0131; J0690; J2274; J2540; J2590; J3010; J7120

== ENCOUNTER 2017-08-30 20:41 | Emergency (ER) | payer SELFPAY ==
[~2017-08-30] VITALS: Ht 160 cm; Wt 113.5 kg
[~2017-08-30 20:41] MED LIST changes: +FERR325T PO; +IBUP-232 PO; +OXYC1TAB63 PO; +PREN1TAB30 PO; -TOPI25 PO
[2017-08-30 20:55] VITALS: BP 176/67; PULSE 100; RESP 16; TEMP 98.6; O2SAT 100
--- NOTE | 2017-08-30 22:04 | PD ---
HPI Chief Complaint: Pain: Acute or Chronic Time Seen by Provider: 22:01 Travel History International Travel<30 days: No Contact w/Intl Traveler<30days: No Traveled to known affect area: No History of Present Illness HPI 26-year-old female patient presents to the ER today because she states that she has had multiple month history of right knee pains which have worsened in the last few days because she has been on her feet a lot at work. She states it feels like a burning pain on the front of her knee, states is currently an 8 out of 10 and worsens with movements. She denies any injuries or any other issues. Modifying Factors: None Associated Signs & Symptoms: Right knee pain and burning Risk Factors: None PFSH Past Medical History Diminished Hearing: No Medical other: Yes (PRE-ECLAMPSIA WITH 1ST CHILD ) Immunizations Current: Yes ?: Not LMP: 08/30/17 : 2 Para: 2 Past Surgical History Section: Yes (X2) Social History Alcohol Use: No Tobacco Use: No Substance Use: No Allergies-Medications (Allergen,Severity, Reaction): Coded Allergies: No Known Allergies (Unverified , 11/06/15) Reported Meds & Prescriptions Reported Meds & Active Scripts Active No Active Prescriptions or Reported Medications Review of Systems Except as stated in HPI: all other systems reviewed are Neg Physical Exam Narrative GENERAL: Well-nourished, well-developed obese young -[place] female patient in mild distress. Awake and oriented 3. SKIN: Focused skin assessment warm/dry. HEAD: Normocephalic. EYES: No scleral icterus. No injection or drainage. NECK: Supple, trachea midline. No JVD or lymphadenopathy. CARDIOVASCULAR: Regular rate and rhythm without murmurs, gallops, or rubs. RESPIRATORY: Breath sounds equal bilaterally. No accessory muscle use. GASTROINTESTINAL: Abdomen soft, non-tender, nondistended. EXTREMITIES: No clubbing, cyanosis, or edema. No joint tenderness, effusion, or edema noted. Mild tenderness to palpation of the anterior medial right knee. No point tenderness. No crepitus. No other deformities identified. MUSCULOSKELETAL: No cyanosis, or edema. BACK: Nontender without obvious deformity. No CVA tenderness. Data Data Last Documented VS Vital Signs Date Time Temp Pulse Resp B/P (MAP) Pulse Ox O2 Delivery O2 Flow Rate FiO2 08/30/17 20:55 98.6 100 16 176/67 (103) 100 Orders Orders Knee, Complete (4vws) (08/30/17 22:01) Ed Discharge Order (08/30/17 22:39) MDM Medical Decision Making Medical Screen Exam Complete: Yes Emergency Medical Condition: Yes Medical Record Reviewed: Yes Differential Diagnosis Arthritis versus tendinitis versus bursitis versus strain Narrative Course X-ray did not show any signs of acute fractures or underlying bony issues. At this point, patient is ambulatory in the ER without issues. I suspect that she may have a strain or bursitis. Plan would be to give her a support and pain medications. Decrease standing and walking may also help. Return for any worsening in symptoms as necessary. The plan has been discussed with her and she states understanding. Diagnosis Primary Impression: Knee strain Med/Other Pt SpecificInfo: Prescription(s) given Scripts Ibuprofen (Ibuprofen) 600 Mg Tab 600 MG PO Q6H Y for Pain/Inflammation, #20 TAB 0 Refills Prov: Harsha Arroyo MD 08/30/17 Disposition: 01 DISCHARGE HOME Condition: Stable Harsha Arroyo MD August 30, 2017 22:04
--- NOTE | 2017-08-30 22:35 | RADRPT ---
EXAM DATE/TIME: 08/30/2017 22:09 [facility] COMPARISON: No previous studies available for comparison. INDICATIONS : Patient complains of right knee pain. No known injury. MEDICAL HISTORY : None. SURGICAL HISTORY : None. ENCOUNTER: Initial ACUITY: 1 week PAIN SCORE: 8/10 LOCATION: Right Knee FINDINGS: Four view examination of the right knee demonstrates no evidence of fracture or dislocation. Bony mi neralization is normal. The articular surfaces are intact. The suprapatellar soft tissues have a no rmal configuration. CONCLUSION: Unremarkable examination of the right knee. Sandor Fan Jr., MD on August 30, 2017 at 22:33 Board Certified Radiologist. This report was verified electronically.
[2017-08-30] MEDS ORDERED: IBUP-232 PO (22:42)
== END 2017-08-30 23:22 | disposition home or self-care (01) ==
LOC: NEPE 20:41
DX: S86.911A Strain of unspecified muscle(s) and tendon(s) at lower leg level, right leg, initial encounter (principal); X58.XXXA Exposure to other specified factors, initial encounter
CPT/HCPCS: 73564; 99283